=== PATIENT | male | born 1995 | race Caucasian/White ===

== ENCOUNTER 2018-09-11 04:27 | Emergency (ER) | payer OTHER ==
[~2018-09-11] VITALS: Ht 170.2 cm; Wt 84.8 kg
[~2018-09-11 04:27] MED LIST: BACTRIM DS TAB1 EACH PO; NOHOMEMEDICATIONS
[2018-09-11] MEDS ORDERED: ACETAMINOPHEN-1 EAC1 PO (04:52)
[2018-09-11 05:08] VITALS: BP 121/79
== END 2018-09-11 05:10 | disposition home or self-care (01) ==
LOC: M.ERS 04:27
DX: S93.492A Sprain of other ligament of left ankle, initial encounter (principal); W22.8XXA Striking against or struck by other objects, initial encounter; Y93.01 Activity, walking, marching and hiking; Y92.89 Other specified places as the place of occurrence of the external cause; Y99.8 Other external cause status